=== PATIENT | male | born 1945 | race Caucasian/White ===

== ENCOUNTER → 2016-08-15 | Outpatient (CLI) | payer OTHER | END | disposition home or self-care (01) | LOC: LAB.O 10:44 | PROVIDERS: ATTEND Psychiatry & Neurology Neurology | DX: M45.9 Ankylosing spondylitis of unspecified sites in spine (principal); I67.9 Cerebrovascular disease, unspecified; I10 Essential (primary) hypertension; E03.9 Hypothyroidism, unspecified; M35.3 Polymyalgia rheumatica; M33.22 Polymyositis with myopathy; M54.81 Occipital neuralgia; H46.9 Unspecified optic neuritis; M54.12 Radiculopathy, cervical region ==